=== PATIENT | female | born 1995 | race Two or more races ===

== ENCOUNTER 2018-11-25 22:30 | Emergency (ER) | payer OTHER ==
[~2018-11-25] VITALS: Ht 157.5 cm; Wt 69.0 kg
[2018-11-25 23:55] LABS: CLARITY URINE CLEAR (CLEAR); COLOR URINE YELLOW (YELLOW); KETONES URINE NEGATIVE (NEGATIVE); LEUKOCYTE ESTERASE URINE NEGATIVE (NEGATIVE); NITRITE URINE NEGATIVE (NEGATIVE); OCCULT BLOOD URINE NEGATIVE (NEGATIVE); PH URINE 6.5 (4.5-8.0); PROTEIN URINE NEGATIVE (NEGATIVE); SPECIFIC GRAVITY URINE 1.025 (1.005-1.030); UROBILINOGEN URINE 0.2 E.U./dL (0.2-1.0)
[2018-11-26 01:23] VITALS: BP 117/72
== END 2018-11-26 01:26 | disposition home or self-care (01) ==
LOC: ER 22:30
DX: R05 Cough (principal); R51 Headache; Z88.1 Allergy status to other antibiotic agents
CPT/HCPCS: 71045; 81025; 99284